=== PATIENT | male | born 1990 | race Caucasian/White ===

== ENCOUNTER 2017-11-13 04:58 | Emergency (ER) | payer OTHER ==
[2017-11-13] MEDS ORDERED: fentaNYL 100 MCG/2 ML INJ IVP ONE ×2 (05:33→06:29)
--- NOTE | 2017-11-13 05:45 | EDPHY ---
H & P Stated Complaint: right arm pain s/p old fx from 2 weeks ago fall 20 ft Time Seen by Provider: 11/13/17 05:06 HPI/ROS: HPI The patient presents with painful right wrist for the last several hours. While in [place] 2 weeks ago the patient had a fall and sustained a distal radius fracture. He was seen in the emergency room and was splinted and was to follow up with an orthopedic surgeon for an operation. He says because he did not have insurance the orthopedic surgeon did not perform an operation. His friend made a cast out of plaster for him. However tonight, the cast got wet and had to be removed. Since then his pain has been worse. He describes a severe pain of his wrist which is achy in nature. He does not have any numbness or tingling of his hands. REVIEW OF SYSTEMS 10 systems were reviewed and negative with the exception of the elements mentioned in the history of present illness. PMHx: Prior hand fracture Soc Hx: Transient PHYSICAL General Appearance: Uncomfortable, yelling and screaming in pain Eyes: Pupils equal and round no pallor or injection ENT, Mouth: Mucous membranes moist Respiratory: breathing comfortably Neurological: A&O, moves all extremities Skin: Warm and dry, no rashes Musculoskeletal: Right wrist with obvious deformity with 2+ radial pulses, sensation intact throughout his hands and full range of motion of his fingers Extremities: symmetrical, full range of motion Psychiatric: Patient is oriented X 3, there is no agitation Source: Patient Exam Limitations: No limitations - Personal History Current Tetanus/Diphtheria Vaccine: Yes Current Tetanus Diphtheria and Acellular Pertussis (TDAP): Yes - Medical/Surgical History Hx Asthma: No Hx Chronic Respiratory Disease: No Hx Diabetes: No Hx Cardiac Disease: No Hx Renal Disease: No Hx Cirrhosis: No Hx Alcoholism: No Hx HIV/AIDS: No Hx Splenectomy or Spleen Trauma: No Other PMH: ortho repairsd, foot, hand - Social History Smoking Status: Heavy smoker Constitutional: Initial Vital Signs Temperature (C) 36.7 C 11/13/17 05:00 Heart Rate 107 H 11/13/17 05:00 Respiratory Rate 20 11/13/17 05:00 Blood Pressure 157/95 H 11/13/17 05:00 O2 Sat (%) 97 11/13/17 05:00 O2 Delivery Mode Room Air Allergies/Adverse Reactions: No Known Allergies Allergy (Unverified 11/13/17 05:08) Home Medications: Medication Instructions Recorded NK [No Known Home Meds] 11/13/17 Medical Decision Making - Diagnostics Imaging Results: X-ray right wrist two views shows distal radius fracture which is for shortened and displaced, interpreted by me, radiology interpretation is pending. Repeat right wrist two views shows slight improvement in alignment of fracture segments while in splint, radiology interpretation pending. Imaging: I viewed and interpreted images myself Procedures: REDUCTION Procedure: Dislocation reduction. Indication: Dislocation The right wrist was reduced in the usual fashion without complications. Post reduction the patient's neurovascular exam is normal. Post reduction x-ray demonstrates reduction of the joint to the anatomic position. The procedure was performed by myself. Differential Diagnosis: 27-year-old homeless man visiting from [place] presents with distal radius fracture, 2-week-old, his homemade cast has fallen off and now he is having severe wrist pain. He is neurovascularly intact. Here, we obtained x-rays, performed hematoma block, placed him in finger traps and performed a reduction. I have placed him in a splint. I have advised him that he must follow up with Orthopedics in the next few days and I have given him information for the orthopedist web content executive. - Data Points Medications Given: Discontinued Medications Fentanyl (Sublimaze) 100 mcg IVP EDNOW ONE Stop: 11/13/17 05:34 Last Admin: 11/13/17 05:58 Dose: 100 mcg Fentanyl (Sublimaze) 100 mcg IVP EDNOW ONE Stop: 11/13/17 06:30 Last Admin: 11/13/17 06:36 Dose: 100 mcg Departure - Departure Disposition: Home, Routine, Self-Care Clinical Impression: Distal radius fracture, right Qualifiers: Encounter type: initial encounter Fracture type: closed Fracture morphology: other fracture Qualified Code(s): S52.591A - Other fractures of lower end of right radius, initial encounter for closed fracture Condition: Good Instructions: Wrist Fracture in Adults (ED), Splint Care (ED) Additional Instructions: Please follow-up with the orthopedist listed below. Referrals: Wu Valentine MD [Medical Doctor] - As per Instructions
[2017-11-13 07:27] VITALS: BP 100/58
== END 2017-11-13 07:27 | disposition home or self-care (01) ==
PROC: 0RSNXZZ Reposition Right Wrist Joint, External Approach (ICD-10-PCS; principal; 2017-11-13)
DX: S52.571A Other intraarticular fracture of lower end of right radius, initial encounter for closed fracture (principal); S52.611A Displaced fracture of right ulna styloid process, initial encounter for closed fracture; W17.89XA Other fall from one level to another, initial encounter; Y92.9 Unspecified place or not applicable; Z87.81 Personal history of (healed) traumatic fracture; F17.200 Nicotine dependence, unspecified, uncomplicated
CPT/HCPCS: 96374; A4565; J3010

== ENCOUNTER → 2017-11-22 | Outpatient (CLI) | payer OTHER, MEDICAID ==
[~2017-11-22] MED LIST: BUPIVACAINE 0.5% 30 ML SDV ONE
== END ==
LOC: FIMAGING 18:13
PROVIDERS: ATTEND Orthopaedic Surgery
DX: Z01.818 Encounter for other preprocedural examination (principal); S52.571A Other intraarticular fracture of lower end of right radius, initial encounter for closed fracture

== ENCOUNTER 2017-11-23 11:04 | Day surgery (SDC) | payer OTHER, MEDICAID ==
[2017-11-23] MEDS ORDERED: LIDOCAINE 1% 2 ML INJ ID PRN (11:10)
[2017-11-23] MEDS ORDERED: LR 1,000 ML IV ONE (11:10)
[2017-11-23] MEDS ORDERED: BUPIVACAINE 0.5% 30 ML SDV ONE (11:14)
[2017-11-23] MEDS ORDERED: ceFAZolin 2 GM/DEXTROSE 100 ML IV ONE (11:40)
--- NOTE | 2017-11-23 11:40 | PDHPUP ---
History & Physical Update H&P update statement: This history and physical update is based on an assessment of the patient which was completed after admission or registration (within 24 hours), but prior to the surgery/procedure. H&P update: H&P reviewed & patient examined, no change in patient's condition since H&P completed
[2017-11-23] MEDS ORDERED: MIDAZOLAM 2 MG/2 ML VIAL IVP ONE (11:42)
--- NOTE | 2017-11-23 11:42 | PDANEPAE ---
ANE History of Present Illness r wrist fx here for ORIF ANE Past Medical History - Cardiovascular History Hx Hypertension: No Hx Arrhythmias: No Hx Chest Pain: No Hx Coronary Artery / Peripheral Vascular Disease: No Hx CHF / Valvular Disease: No Hx Palpitations: No - Pulmonary History Hx COPD: No Hx Asthma/Reactive Airway Disease: No Hx Recent Upper Respiratory Infection: No Hx Oxygen in Use at Home: No Hx Sleep Apnea: No Sleep Apnea Screening Result - Last Documented: Negative - Neurologic History Hx Cerebrovascular Accident: No Hx Seizures: No Hx Dementia: No - Endocrine History Hx Diabetes: No - Renal History Hx Renal Disorders: No - Liver History Hx Hepatic Disorders: No - Neurological & Psychiatric Hx Hx Neurological and Psychiatric Disorders: No - Cancer History Hx Cancer: No - Congenital Disorder History Hx Congenital Disorders: No - GI History Hx Gastrointestinal Disorders: No - Other Health History Other Health History: UPPER PARTIAL. FELL 10/2017 SUSTAINING FX R WRIST - Chronic Pain History Chronic Pain: No - Surgical History Prior Surgeries: LT HEEL. RT HAND. RT THIGHT ANE Review of Systems Review of Systems: - Exercise capacity METS (RN): 5 METS ANE Patient History - Allergies Allergies/Adverse Reactions: No Known Allergies Allergy (Unverified 11/13/17 05:08) - Home Medications Home Medications: NK [No Known Home Meds] 11/13/17 [Last Taken Unknown] - NPO status NPO Since - Liquids (Date): 11/23/17 NPO Since - Liquids (Time): 09:00 NPO Since - Solids (Date): 11/22/17 NPO Since - Solids (Time): 21:00 - Anes Hx Anes Hx: no prior problems - Smoking Hx Smoking Status: Heavy smoker - Alcohol Use Alcohol Use: Rarely - Family Anes Hx Family Anes Hx: none ANE Labs/Vital Signs - Vital Signs Blood Pressure: 134/69 Heart Rate: 63 Respiratory Rate: 18 O2 Sat (%): 94 Height: 182.88 cm Weight: 77.111 kg ANE Physical Exam - Airway Neck exam: FROM Mallampati Score: Class 1 Mouth exam: normal dental/mouth exam - Pulmonary Pulmonary: no respiratory distress, clear to auscultation - Cardiovascular Cardiovascular: regular rate and rhythym, no murmur, rub, or gallop - ASA Status ASA Status: II ANE Anesthesia Plan Anesthesia Plan: GA w LMA
[2017-11-23] MEDS ORDERED: PROPOFOL 200 MG/20 ML VIAL ONE (12:08)
[2017-11-23] MEDS ORDERED: fentaNYL 100 MCG/2 ML INJ ONE ×5 (12:08→14:20)
[2017-11-23] MEDS ORDERED: ROCURONIUM 50 MG/5 ML VIAL ONE (12:13)
[2017-11-23] MEDS ORDERED: LIDOCAINE 2% 2 ML INJ ONE (12:14)
[2017-11-23] MEDS ORDERED: ONDANSETRON 4 MG/2 ML VIAL ONE (12:17)
[2017-11-23] MEDS ORDERED: DEXAMETHASONE 4 MG/ML VIAL ONE (12:17)
--- NOTE | 2017-11-23 14:06 | POSTOPPROG ---
Post Op Note Date of Operation: 11/23/17 Surgeon: Wu Valentine [facility] Physician: jenniffer Anesthesiologist: Hue Anesthesia: GET(General Endotracheal) Pre-op Diagnosis: R distal radius fx Post-op Diagnosis: same Indication: above Procedure: orif R distal radius Inf/Abcess present in the surg proc area at time of surgery?: No EBL: Minimal
[2017-11-23] MEDS ORDERED: HYDROCODONE/APAP 5/325 TAB PO PRN (14:07)
[2017-11-23] MEDS ORDERED: PROMETHAZINE HCL 25 MG/ML INJ IVP PRN (14:07)
[2017-11-23] MEDS ORDERED: ONDANSETRON 4 MG/2 ML VIAL IVP PRN (14:07)
[2017-11-23] MEDS ORDERED: ACETAMINOPHEN 500 MG TAB PO PRN (14:07)
[2017-11-23] MEDS ORDERED: oxyCODONE IR 5 MG TAB PO PRN (14:07)
[2017-11-23] MEDS ORDERED: NALOXONE HCL 0.4 MG/ML INJ IVP PRN (14:07)
--- NOTE | 2017-11-23 14:09 | POSTANESTH ---
Post Anesthetic Evaluation Cardiovascular Status: Normal, Stable, Similar to Pre-Op Cond Respiratory Status: Normal, Stable, Similar to Pre-op Cond. Level of Consciousness/Mental Status: Can Participate in Eval, Alert and Oriented Pain Control: Adequate, Prn Tx Ordered Nausea/Vomiting Control: Adequate, Prn Tx Ordered Complications Possibly Related to Anesthesia: None Noted
[2017-11-23] MEDS: fentaNYL 100 MCG/2 ML INJ IVP PRN ×3 (14:15→14:32)
[2017-11-23] MEDS ORDERED: HYDROmorphONE/DILAUDID 2 MG/ML INJ ONE (14:29)
[2017-11-23] MEDS ORDERED: HYDROCODONE/APAP 5/325 TAB ONE (14:30)
[2017-11-23] MEDS: HYDROmorphONE/DILAUDID 2 MG/ML INJ IVP PRN ×3 (14:33→14:59)
[2017-11-23 15:52] VITALS: BP 130/72
--- NOTE | 2017-11-23 15:53 | GOP ---
DATE OF OPERATION: 11/23/2017 SURGEON: Wu Valentine MD PIT HOIST OPERATOR: Mode Jhaveri SA PREOPERATIVE DIAGNOSIS: Right 4 part distal radius fracture, intra-articular. POSTOPERATIVE DIAGNOSIS: Right 4 part distal radius fracture, intra-articular. PROCEDURE PERFORMED: Open reduction, internal fixation right 4 part distal radius fracture. Implant : Synthes distal radius plate with two 4 locking screws, two 7 nonlocking screws proximally. FINDINGS: SPECIMENS: None. ESTIMATED BLOOD LOSS: 10 mL. INDICATIONS: This is a 27-year-old male who sustained this fracture 3-1/2 weeks ago. He was in [facility] at the time, he was splinted and not reduced. He did not receive care there. Instead, he came to [place], presented to the [facility] about 2 weeks later. He was reduced and sp linted and he presented to me in clinic well over 2 weeks out from this. Given the severe nature of his fracture, the intraarticular nature, displacement of the fragments, I still counseled him on risk s and benefits of operative intervention for ORIF. I discussed this would be difficult given the del ayed presentation and the callus and difficulty fully reducing the fragments, but he elected for surg cornel. I did tell him I needed to obtain a CT scan to better understand the fracture. He subsequently turned his cellphone off for about 5 days, but then we were able to get a hold of him, we did get th e scan and then we got him to surgery the next day. We discussed risks of nerve injury, bleeding, he matoma, continued pain, need for hardware removal, collapse, arthritis, and he wished to proceed. In formed consent obtained, all questions answered. He was marked preoperatively. DESCRIPTION OF PROCEDURE: He was taken to the operative suite. His splint was extremely dirty and w orn. This was removed and his hand was extremely dirty. This was pre scrubbed and then thoroughly c leaned and then scrubbed sterile. He was sterilely prepped and draped in normal fashion. Time-out w as performed verifying site, side, location with agreement of the team. Esmarch tourniquet inflated. I made incision over the volar wrist over the FCR tendon, mobilized the tendon, worked through the tendon sheath, protecting the neurovascular structures, mobilized the quadratus, exposed the fracture . There was significant callus which I debrided. I was able to mobilize the radial styloid fragment , debride as much callus as I could out of this. Also mobilized the major lunate volar fragment. I then worked through this and mobilized posterior structures and the dorsal structures. I was able to get a reduction by placing a K-wire in the styloid and the clamp across this and placed this across bone at the same time, hyperflexing the wrist and bringing this out to length. I placed a plate prov isionally, checked this fluoroscopically, placed distal locking screws, 1st checking this fluoroscopi haley. Then a proximal screw further, helping the reduction. I felt given the severe nature of his f ractures, its appearance on CT scan and the age of the fracture, the acceptable reduction with length , alignment and rotation. The screw placements were not in the joint. Final images were taken after all proximal screws were placed. It was irrigated. Tourniquet was let down. Hemostasis obtained. It was closed with 2-0 Vicryl, 3-0 Quill and Dermabond. He was taken to PACU in stable condition. COMPLICATIONS: None. DRAINS: None. CONDITION: Stable. /[id number]/MODL
== END 2017-11-23 15:50 | disposition home or self-care (01) ==
LOC: FSGY 11:04
PROVIDERS: ATTEND Orthopaedic Surgery
PROC: 0PSH04Z Reposition Right Radius with Internal Fixation Device, Open Approach (ICD-10-PCS; principal; 2017-11-23 12:00)
DX: S52.571A Other intraarticular fracture of lower end of right radius, initial encounter for closed fracture (principal); X50.9XXA Other and unspecified overexertion or strenuous movements or postures, initial encounter; Y92.9 Unspecified place or not applicable; F17.200 Nicotine dependence, unspecified, uncomplicated
CPT/HCPCS: C1713; J0690; J1100; J1170; J2250; J2405; J2704; J3010

== ENCOUNTER 2017-12-03 11:08 | Emergency (ER) | payer OTHER, MEDICAID ==
[2017-12-03 11:22] VITALS: BP 125/81
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
== END 2017-12-03 13:33 | disposition home or self-care (01) ==
DX: S59.911A Unspecified injury of right forearm, initial encounter (principal); Y04.2XXA Assault by strike against or bumped into by another person, initial encounter; S52.571D Other intraarticular fracture of lower end of right radius, subsequent encounter for closed fracture with routine healing; Y99.8 Other external cause status; F17.200 Nicotine dependence, unspecified, uncomplicated; Z59.0 Homelessness